=== PATIENT | female | born 1975 | race Asian ===

== ENCOUNTER 2020-04-08 06:11 | Emergency (ER) | payer MEDICAID ==
[~2020-04-08] VITALS: Ht 147.3 cm; Wt 67.0 kg
[2020-04-08] MEDS ORDERED: FAMO-63 PO (06:40)
[2020-04-08] MEDS ORDERED: DIPH25CA58 PO (06:40)
[2020-04-08] MEDS ORDERED: DIPH103G TP (06:40)
--- NOTE | 2020-04-08 06:41 | PHYS DOC ---
General Adult EDM: Chief Complaint: SKIN RASH/ABSCESS HPI: HPI: The history was obtained from the patient. Patient is a 44-year-old female with PMH [id number]-nudzwlvze diabetes, hypertension who presents with a chief complaint of rash. Patient states she has noticed a rash to her left arm that began yesterday morning. She denies any known environmental or medication allergies. She states the rash is somewhat red and itchy. She states it involves her left forearm and left bicep. She states it has not spread. Denies any difficulty breathing or vomiting. Denies any drainage from the rash. States the rash is not painful. Has not tried medicine prior to arrival. Denies any yard work recently or exposure to plants. No other complaints. Review of Systems: Review of Systems: Constitutional: Denies fever or chills. [] Eyes: Denies change in visual acuity. [] HENT: Denies nasal congestion or sore throat. [] Respiratory: Denies cough or shortness of breath. [] Cardiovascular: Denies chest pain or edema. [] GI: Denies abdominal pain, nausea, vomiting, bloody stools or diarrhea. [] : Denies dysuria. [] Musculoskeletal: Denies back pain or joint pain. [] Integument: Positive for rash Neurologic: Denies headache, focal weakness or sensory changes. [] Endocrine: Denies polyuria or polydipsia. [] Lymphatic: Denies swollen glands. [] Psychiatric: Denies depression or anxiety. [] Heart Score: Risk Factors: Risk Factors: DM, Current or recent (<one month) smoker, HTN, HLP, family history of CAD, obesity. Risk Scores: Score 0 - 3: 2.5% MACE over next 6 weeks - Discharge Home Score 4 - 6: 20.3% MACE over next 6 weeks - Admit for Clinical Observation Score 7 - 10: 72.7% MACE over next 6 weeks - Early Invasive Strategies Physical Exam: PE: Constitutional: Well developed, well nourished, no acute distress, non-toxic appearance. [] HENT: Normocephalic, atraumatic, bilateral external ears normal, oropharynx moist, no oral exudates, nose normal. [] Eyes: PERRLA, EOMI, conjunctiva normal, no discharge. [] Neck: Normal range of motion, no tenderness, supple, no stridor. [] Cardiovascular:Heart rate regular rhythm, no murmur [] Lungs & Thorax: Bilateral breath sounds clear to auscultation [] Abdomen:soft, no tenderness, no masses, no pulsatile masses. [] Skin: Warm, dry, no erythema, no rash. [] Back: No tenderness, no CVA tenderness. [] Extremities: Left upper extremity with mildly erythematous patchy rash. Blanchable. Slightly raised. No purpura, bulla, petechiae, or mucous membrane involvement. Appears consistent with urticaria. Neurologic: Alert and oriented X 3, normal motor function, normal sensory function, no focal deficits noted. [] Psychologic: Affect normal, judgement normal, mood normal. [] EKG: EKG: [] Radiology/Procedures: Radiology/Procedures: [] Course & Med Decision Making: Course & Med Decision Making Pertinent Labs and Imaging studies reviewed. (See chart for details) [] Patient is a 44-year-old female who presents with chief complaint of rash to the left upper extremity. No signs of anaphylaxis. Rash is most likely related to atopic dermatitis versus urticaria. Patient will be treated symptomatically. Oral medication and topical medications will be prescribed. Return precautions discussed and understood. Instructed to follow-up with primary care physician in 2 to 3 days. Stable for discharge home. Marquez Disclaimer: Marquez Disclaimer: This electronic medical record was generated, in whole or in part, using a voice recognition dictation system. Departure Departure Impression: Primary Impression: Rash Disposition: 01 HOME, SELF-CARE Condition: STABLE Patient Instructions: Rasburicase Injection Additional Instructions: Please follow-up with your primary care physician in the next 2 to 3 days. [facility] [address] [place] [address] [facility] [address] [place] [address] [facility] [address] [facility] [address] [facility] [address] [place] [address] [facility] [address] [place] [address] [facility] [address] [place] [address] [address] [place] [address] [facility] [address] [place] [address] [facility] [address] [place] [address] [facility] Department [address] [place] [address] Scripts Diphenhydramine HCl (Benadryl Itch Stopping) 103 Ml Gel..ml. 1 AVELINA TP BID for 10 Days, #103 ML 0 Refills Prov: KIRAN STEEN DO 04/08/20 Famotidine (PEPCID) 20 Mg Tablet 20 MG PO BID for 7 Days, #14 TAB Prov: KIRAN STEEN DO 04/08/20 Diphenhydramine Hcl (BENADRYL) 25 Mg Capsule 25 MG PO TID PRN PRN for ALLERGIES for 4 Days, #12 CAP Prov: KIRAN STEEN DO 04/08/20 Justicifation of Admission Dx: Justifications for Admission: Justification of Admission Dx: N/A KIRAN STEEN DO Apr 08, 2020 06:40
[2020-04-08 07:09] VITALS: BP 129/59
== END 2020-04-08 07:10 | disposition home or self-care (01) ==
LOC: ER 06:11
DX: R21 Rash and other nonspecific skin eruption (principal); E11.9 Type 2 diabetes mellitus without complications; I10 Essential (primary) hypertension
CPT/HCPCS: 99283